=== PATIENT | male | born 1965 | race Caucasian/White ===

== ENCOUNTER 2016-06-05 09:09 | Emergency (ER) | payer OTHER ==
[~2016-06-05] VITALS: Ht 170.2 cm; Wt 99.8 kg
[2016-06-05 09:15] VITALS: BP 177/114
--- NOTE | 2016-06-05 09:15 | NUR ---
[id number], came to er c/o left flank pain, +hematuria, hx of kidney stone per patient. RR is even and unlabored with nad noted. skin is warm and dry. Awaiting md for eval.
[2016-06-05] MEDS ORDERED: KETOROLAC TROMETHAMINE INJ 30 MG/ML VIAL ONE (09:20)
[2016-06-05] MEDS ORDERED: IV NS 0.9% 1,000 ML ONE (09:20)
--- NOTE | 2016-06-05 09:22 | NUR ---
Urine sample collected and sent to lab
[2016-06-05] MEDS ORDERED: IV NS 0.9% 1,000 ML BAG IV ONE (09:30)
[2016-06-05] MEDS ORDERED: KETOROLAC TROMETHAMINE INJ 30 MG/ML VIAL IV ONE (09:30)
--- NOTE | 2016-06-05 09:34 | NUR ---
Patient came back from CT.
[2016-06-05 09:42] LABS: ALBUMIN 4.6 g/dL (3.4-5.0); BILIRUBIN,DIRECT 0.2 mg/dL (0.0-0.2); BILIRUBIN,TOTAL 0.8 mg/dL (0.2-1.0); CREATININE 1.3 mg/dL (0.6-1.3); TOTAL PROTEIN, SERUM 8.1 g/dL (6.4-8.2)
[2016-06-05 09:46] LABS: BASOPHILS % (AUTO) 0.4 % (0.0-2.0); EOSINOPHILS # (AUTO) 0.1 /CMM (0.0-0.7); EOSINOPHILS % (AUTO) 0.9 % (0.0-6.0); HEMATOCRIT 49 % (39-51); HEMOGLOBIN 17.1 g/dL (13.5-17.5); LYMPHOCYTES # (AUTO) 2.2 /CMM (0.8-4.8); LYMPHOCYTES % (AUTO) 18.8 % (20.0-44.0); MEAN CORPUSCULAR HEMOGLOBIN 30 PG (26.0-33.0); MEAN CORPUSCULAR HGB CONC 35 g/dl (31.0-36.0); MEAN CORPUSCULAR VOLUME 87 fL (80-96); MONOCYTES # (AUTO) 0.7 /CMM (0.1-1.30); MONOCYTES % (AUTO) 6.1 % (2.0-12.0); NEUTROPHILS # (AUTO) 8.9 /CMM (1.8-8.9); NEUTROPHILS % (AUTO) 73.8 % (43.0-81.0); PLATELET COUNT (AUTO) 292 /CMM (150-450); RDW COEFFICIENT OF VARIATION 12.1 (11.5-15.0); RED BLOOD CELL COUNT(AUTO) 5.62 MIL/uL (4.5-6.0); WHITE BLOOD COUNT (AUTO) 11.9 K/uL (4.3-11.0)
[2016-06-05 09:50] LABS: APPEARANCE,URINE Turbid (CLEAR); BILIRUBIN,URINE MODERATE (NEGATIVE); BLOOD, URINE Large Ery/uL (NEGATIVE); COLOR,URINE Amber (YELLOW); KETONES,URINE 15 (NEGATIVE); LEUKOCYTE ESTERASE ,URINE Negative (NEGATIVE); NITRITE, URINE Positive (NEGATIVE); PH,URINE 5.5 (5.0-8.0); PROTEIN,URINE >=300 mg/dl (NEGATIVE); UGLUCOSE Negative (NEGATIVE)
[2016-06-05] MEDS ORDERED: CEFTRIAXONE 1GM BAG (ER ONLY) 1 GM/50 ML PIGGYBACK IV ONE (10:00)
[2016-06-05 10:04] LABS: RBC,URINE 81-100 /HPF (0-2); WBC,URINE 0-3 /HPF (0-3)
[2016-06-05] MEDS ORDERED: IV SET PRIMARY PUMP SET 1 EA INFUS.SET MC ONE (10:04)
[2016-06-05] MEDS ORDERED: CEFTRIAXONE 1GM BAG (ER ONLY) 50 ML IV ONE (10:04)
[2016-06-05 10:05] LABS: SQUAMOUS EPITHELIAL CELL,UR Few /HPF (None Seen)
[2016-06-05 10:06] LABS: ADD URINE CULTURE YES; BACTERIA,URINE Many /HPF (None Seen); URINE AMORPHOUS URATE Many /HPF (None Seen)
[2016-06-05] MEDS ORDERED: TAMSULOSIN 0.4 MG CAP.SR.24H PO STA (10:13)
[2016-06-05] MEDS ORDERED: IBUPROFEN 400 MG TABLET PO ONE (10:30)
[2016-06-05] MEDS ORDERED: TAMSULOSIN 0.4 MG CAP.SR.24H ONE (10:31)
[2016-06-05] MEDS ORDERED: IBUPROFEN 400 MG TABLET ONE (10:31)
[2016-06-05] MEDS ORDERED: diphenhydrAMINE HCL 25 MG CAPSULE ONE (10:57)
--- NOTE | 2016-06-05 10:58 | NUR ---
IV removed. Catheter intact and site benign. Pressure and 4x4 applied to site. No bleeding noted.
[2016-06-05] MEDS ORDERED: diphenhydrAMINE HCL 25 MG CAPSULE PO ONE (11:00)
--- NOTE | 2016-06-05 11:00 | NUR ---
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
--- NOTE | 2016-06-05 11:08 | NUR ---
Patient will be continuously monitor at [facility] to face possible allergic reaction to motrin.
--- NOTE | 2016-06-05 11:14 | NUR ---
Patient eloped from facility. ER MD notified.
--- NOTE | 2016-06-05 11:14 | NUR ---
Patient was told to stay in the ER for observation d/t allergic reaction to motrin for observation. Somehow the patient left the ER, ER md made aware.
== END 2016-06-05 11:15 | disposition left against medical advice (07) ==
LOC: ER 09:14
DX: N13.2 Hydronephrosis with renal and ureteral calculous obstruction (principal); F41.9 Anxiety disorder, unspecified; F17.210 Nicotine dependence, cigarettes, uncomplicated; Z88.0 Allergy status to penicillin
CPT/HCPCS: 36415; 80048-TC; 80076-TC; 81000-TC; 82550-TC; 83690-TC; 85025-TC; 87086-TC; A4606; J0696; J1885; J7030; Q0163; Z7610